=== PATIENT | male | born 1955 | race Caucasian/White ===

== ENCOUNTER 2024-09-16 09:21 | Inpatient (IN) | payer MEDICARE, BC ==
[~2024-09-16] VITALS: Ht 180.3 cm; Wt 77.1 kg
[2024-09-16 09:21] VITALS: TEMP 97.7
[~2024-09-16 09:21] MED LIST: AMLODIPINE BESYL5 MG PO
[2024-09-16] MEDS ORDERED: SODIUM CHLORIDE FLUSH 10 ML SYR IV PRN (09:45)
[2024-09-16 10:13] LABS: BASOPHILS % 0.2 % (0.0-1.0); EOSINOPHILS % 0.1 % (0.0-6.0); HEMATOCRIT 47.8 % (38.2-49.6); HEMOGLOBIN 15.6 g/dL (14.0-18.0); LYMPHOCYTES # (AUTO) 1.2 (1.0-3.2); LYMPHOCYTES % 12.6 % (18.0-39.1); MEAN CORPUSCULAR HEMOGLOBIN 31.4 pg (28-32); MEAN CORPUSCULAR HGB CONC 32.6 g/dL (31-35); MEAN CORPUSCULAR VOLUME 96.2 fL (81-99); MONOCYTES # (AUTO) 0.5 (0.2-0.8); MONOCYTES % 4.7 % (4.4-11.3); NEUTROPHILS % 82.2 % (38.7-80.0); PLATELET COUNT 203 x10e3/uL (140-360); RED BLOOD COUNT 4.97 x10e6/uL (4.3-5.7); RED CELL DISTRIBUTION WIDTH 11.9 % (11.7-14.4); WHITE BLOOD COUNT 9.74 x10e3/uL (4.8-10.8)
[2024-09-16 10:19] LABS: ALBUMIN 4.5 g/dL (3.5-5.0); ALBUMIN/GLOBULIN RATIO 1.4 (0.8-2.0); ANION GAP 17.2 mmol/L (8-16); BILIRUBIN,TOTAL 1.4 mg/dL (0.2-1.2); CREATININE, SERUM 1.14 mg/dL (0.72-1.25); POTASSIUM 4.2 mmol/L (3.5-5.1); TOTAL PROTEIN 7.8 g/dL (6.5-8.1)
[2024-09-16] MEDS: SODIUM CHLORIDE 0.9% 1000ML 1,000 ML IV ONE (10:24)
[2024-09-16 10:37] LABS: TROPONIN I 0.001 ng/mL (0-0.300)
[2024-09-16] MEDS: ENOXAPARIN INJ 80 MG/0.8 ML SYR SC SCH (10:47)
[2024-09-16] MEDS: SODIUM CHLORIDE 0.9% 1000ML 1,000 ML IV SCH (11:00)
[2024-09-16] MEDS ORDERED: ONDANSETRON HCL INJ 2MG/ML 2ML 2 MG/ML VIAL IV PRN (11:00)
[2024-09-16 12:45] VITALS: PULSE 91; RESP 16
[2024-09-16 14:00] VITALS: BP 108/83; PULSE 103; RESP 18; TEMP 98; O2SAT 100
[2024-09-16] MEDS ORDERED: ACETAMINOPHEN 325 MG TAB PO PRN (15:00)
[2024-09-16] MEDS: ASPIRIN 81 MG CHEW TAB PO ONE ×2 (15:26→17:24)
[2024-09-16 16:00] VITALS: BP 117/81; PULSE 56; RESP 18; TEMP 97.8; O2SAT 95
[2024-09-16 20:00] VITALS: BP 137/86; PULSE 85; RESP 18; TEMP 98.3; O2SAT 98
[2024-09-16 21:15] VITALS: BP 137/86; PULSE 85; RESP 18; TEMP 98.3; O2SAT 98
[2024-09-17] VITALS (7 sets, daily range): BP systolic 111–138; BP diastolic 82–100; PULSE 84–88; RESP 18; TEMP 97.9–98.6; O2SAT 98–100
[2024-09-17 06:07] LABS: BASOPHILS % 0.3 % (0.0-1.0); EOSINOPHILS # (AUTO) 0.1 (0.0-0.4); EOSINOPHILS % 1.3 % (0.0-6.0); HEMATOCRIT 41.4 % (38.2-49.6); HEMOGLOBIN 14.1 g/dL (14.0-18.0); LYMPHOCYTES # (AUTO) 2.1 (1.0-3.2); MEAN CORPUSCULAR HEMOGLOBIN 31.5 pg (28-32); MEAN CORPUSCULAR HGB CONC 34.1 g/dL (31-35); MEAN CORPUSCULAR VOLUME 92.4 fL (81-99); MONOCYTES # (AUTO) 0.6 (0.2-0.8); MONOCYTES % 8.5 % (4.4-11.3); NEUTROPHILS % 58.6 % (38.7-80.0); PLATELET COUNT 189 x10e3/uL (140-360); RED BLOOD COUNT 4.48 x10e6/uL (4.3-5.7); RED CELL DISTRIBUTION WIDTH 11.9 % (11.7-14.4); WHITE BLOOD COUNT 6.84 x10e3/uL (4.8-10.8)
[2024-09-17 06:34] LABS: ALBUMIN 3.5 g/dL (3.5-5.0); ALBUMIN/GLOBULIN RATIO 1.2 (0.8-2.0); ANION GAP 11.6 mmol/L (8-16); CALCIUM 8.8 mg/dL (8.4-10.2); CREATININE, SERUM 0.98 mg/dL (0.72-1.25); POTASSIUM 3.6 mmol/L (3.5-5.1); TOTAL PROTEIN 6.4 g/dL (6.5-8.1)
[2024-09-17 07:19] LABS: CHOL/HDL RATIO 3.2 (3.9-4.7)
[2024-09-17 07:31] LABS: THYROID STIMULATING HORMONE 0.84 uIU/mL (0.350-4.940)
[2024-09-17 07:58] LABS: TROPONIN I 0.023 ng/mL (0-0.300)
[2024-09-17] MEDS: SODIUM CHLORIDE 0.9% 1000ML 1,000 ML IV SCH (09:04)
[2024-09-17] MEDS: POTASSIUM CHLORIDE 10MEQ EA PO ONE (11:29)
[2024-09-17 15:09] LABS: TROPONIN I 0.001 ng/mL (0-0.300)
[2024-09-18] VITALS: BP 116/85; PULSE 83; RESP 18; TEMP 97.7; O2SAT 98
[2024-09-18 04:00] VITALS: BP 118/84; PULSE 82; RESP 18; TEMP 97.8; O2SAT 99
[2024-09-18 06:17] LABS: ANION GAP 12.3 mmol/L (8-16); CALCIUM 8.5 mg/dL (8.4-10.2); CREATININE, SERUM 0.78 mg/dL (0.72-1.25)
[2024-09-18 06:27] LABS: POTASSIUM 3.3 mmol/L (3.5-5.1)
[2024-09-18 08:00] VITALS: BP 124/85; PULSE 94; RESP 20; TEMP 97.8; O2SAT 100
[2024-09-18 09:10] VITALS: BP 124/85; PULSE 94; RESP 20; TEMP 97.8; O2SAT 100
[2024-09-18] MEDS: POTASSIUM CHLORIDE 20 MEQ TAB CR PO SCH (10:10)
[2024-09-18] MEDS ORDERED: POTASSIUM CHLORIDE 10MEQ EA PO ONE (10:15)
[2024-09-18] MEDS ORDERED: ELIQUIS5 MG PO (11:21)
== END 2024-09-18 12:45 | disposition home or self-care (01) | DRG 310 ==
LOC: ER 09:25 → ERHOLD 10:52 → MED/SURG2 13:31
PROVIDERS: ADMIT Internal Medicine; ATTEND Internal Medicine
DX: I48.91 Unspecified atrial fibrillation (principal); R55 Syncope and collapse; I10 Essential (primary) hypertension; E78.2 Mixed hyperlipidemia; R00.0 Tachycardia, unspecified; S00.81XA Abrasion of other part of head, initial encounter; Z79.01 Long term (current) use of anticoagulants; W18.39XA Other fall on same level, initial encounter; Y92.012 Bathroom of single-family (private) house as the place of occurrence of the external cause; F17.290 Nicotine dependence, other tobacco product, uncomplicated; Z82.49 Family history of ischemic heart disease and other diseases of the circulatory system
CPT/HCPCS: 36415; 70450; 71045; 80048; 80053; 80061; 82550; 83735; 83880; 84443; 84484; 85025; 93005; 93306; 94760; 99284; J1650; J7030